=== PATIENT | female | born 1940 | race Caucasian/White ===

== ENCOUNTER → 2017-09-25 | Outpatient (CLI) | payer MEDICARE ==
[2017-03-01 11:20] VITALS: BMI 51.1
[~2017-09-25] MED LIST: ALEN5TAB PO; ALPR-459 PO; ASPI-1471 PO; ASPI81TA15 PO; CHOL500045 PO; ESCI5TAB3 PO; ESTR1.2525 PO; ESTR1POW41 MC; FLUO-202 PO; IRON1TAB10 PO; LEV88 PO; LEVO88TA43 PO; LISI2.5T60 PO; LISI30TA49 PO; MAX75 PO; OMEP-137 PO; ZOLP6.2530 PO
[2017-09-25 14:55] LABS: PLATELET COUNT, AUTOMATED 262 K/uL (150-450)
== END ==
LOC: LAB 14:13
PROVIDERS: ATTEND Nurse Practitioner Family
DX: E83.52 Hypercalcemia (principal); Z86.39 Personal history of other endocrine, nutritional and metabolic disease; E78.00 Pure hypercholesterolemia, unspecified; I10 Essential (primary) hypertension; E06.3 Autoimmune thyroiditis; D50.9 Iron deficiency anemia, unspecified; R53.81 Other malaise; E11.9 Type 2 diabetes mellitus without complications; E03.9 Hypothyroidism, unspecified
CPT/HCPCS: 36415; 82040; 82247; 82310; 82374; 82435; 82465; 82565; 82947; 83036; 83718; 84075; 84132; 84155; 84295; 84443; 84450; 84460; 84478; 84520; 85025

== ENCOUNTER → 2017-10-15 | Outpatient (CLI) | payer MEDICARE ==
[2017-03-01 11:20] VITALS: BMI 51.1
[~2017-10-15] MED LIST changes: +IOPAMIDOL 76% 75 ML INFUS BTL 75 ML ONE; +NS 0.9% 50 ML VIAL 50 ML ONE
--- NOTE | 2017-10-15 11:38 | RADIOLOGY IMAGING REPORT ---
FACILITY: [facility] - [place] PATIENT NAME: Donna Chilel : 1940 MR: [id number] V: [id number] EXAM DATE: ORDERING PHYSICIAN: YENY [place] TECHNOLOGIST: Location: [facility] [place] Patient: Donna Chilel : 1940 Visit/Account:[id number] Date of Sevice: 10/15/2017 CHEST W W/O CONTRAST History: Pulmonary nodules, lesions, multiple ADDITIONAL CLINICAL HISTORY: None TECHNIQUE: Contiguous axial images were performed through the chest to the level of the adrenal gla nds with and without IV contrast. Coronal and sagittal reformatting was also performed. Dose Loweri ng Technique One of the following dose optimization techniques was utilized in the performance of this exam: Autom ated exposure control; adjustment of the mA and/or kV according to the patient's size; or use of an i terative reconstruction technique. Specific details can be referenced in the facility's radiology C T exam operational policy. Contrast: 75 mL Isovue-370 COMPARISON STUDIES: April 16, 2017. Lungs / Pleura: 3 mm intrafissural or nodule along the superior aspect of the major fissure on the right appears unchanged best seen on image 30 of series 3 The additional 3 mm intrafissural nodule within the minor fissure on the right is unchanged best seen on image 44 A 4 x 1 mm subpleural nodule lateral aspect right middle lobe also unchanged best seen on image 52 4 mm subpleural nodule posterior lateral left lower lobe also unchanged best seen on image 61 3 mm a pleural nodule lateral aspect of the left lower lobe also unchanged best seen on image 55 There is no evidence of pulmonary infiltrates or pleural effusions. Mediastinum/nodes: negative. Heart and vessels: negative. Musculoskeletal / Body wall: Mild spondylotic changes of the thoracic spine Upper abdomen: Postsurgical changes from a cholecystectomy IMPRESSION: There are multiple small bilateral pulmonary nodules measuring up to 4 mm. These all remain stable w hen compared to the prior study. The Fleischner Society recommendations are as follows For multiple nodules measuring less than 6 mm, in a low risk patient (minimal or absent smoking history, no histor y of malignancy), no routine followup is recommended. In a high risk patient (smoking or malignancy h istory), optional 12 month followup can be obtained. Report Dictated By: Brittni Alan MD at 10/15/2017 11:26 AM Report E-Signed By: Brittni Alan MD at 10/15/2017 11:34 AM WSN:[id number]
== END ==
LOC: CT 06:55
PROVIDERS: ATTEND Surgery
DX: R91.8 Other nonspecific abnormal finding of lung field (principal)
CPT/HCPCS: 71270; J7050; Q9967

== ENCOUNTER → 2018-01-04 | Outpatient (CLI) | payer MEDICARE ==
[2017-03-01 11:20] VITALS: BMI 51.1
[~2018-01-04] MED LIST changes: -IOPAMIDOL 76% 75 ML INFUS BTL 75 ML ONE; -NS 0.9% 50 ML VIAL 50 ML ONE
[2018-01-04 12:26] LABS: PLATELET COUNT, AUTOMATED 267 K/uL (150-450)
== END ==
LOC: LAB 11:37
PROVIDERS: ATTEND Nurse Practitioner Family
DX: R07.89 Other chest pain (principal); E83.52 Hypercalcemia; E78.00 Pure hypercholesterolemia, unspecified; I10 Essential (primary) hypertension; R06.3 Periodic breathing; D50.9 Iron deficiency anemia, unspecified; R53.81 Other malaise; D72.818 Other decreased white blood cell count; D51.0 Vitamin B12 deficiency anemia due to intrinsic factor deficiency; E11.9 Type 2 diabetes mellitus without complications
CPT/HCPCS: 36415; 82040; 82247; 82310; 82374; 82435; 82465; 82565; 82947; 83036; 83718; 83735; 84075; 84132; 84155; 84295; 84443; 84450; 84460; 84478; 84520; 85025

== ENCOUNTER → 2018-01-25 | Outpatient (CLI) | payer MEDICARE ==
[2017-03-01 11:20] VITALS: BMI 51.1
[2018-01-25 12:16] LABS: PLATELET COUNT, AUTOMATED 292 K/uL (150-450)
== END ==
LOC: LAB 11:36
PROVIDERS: ATTEND Nurse Practitioner Family
DX: D72.818 Other decreased white blood cell count (principal); I10 Essential (primary) hypertension
CPT/HCPCS: 36415; 82040; 82247; 82310; 82374; 82435; 82565; 82947; 84075; 84132; 84155; 84295; 84450; 84460; 84520; 85025

== ENCOUNTER → 2018-04-29 | Outpatient (CLI) | payer MEDICARE ==
[2017-03-01 11:20] VITALS: BMI 51.1
== END ==
LOC: LAB 12:52
PROVIDERS: ATTEND Nurse Practitioner Family
DX: E11.22 Type 2 diabetes mellitus with diabetic chronic kidney disease (principal); Z86.39 Personal history of other endocrine, nutritional and metabolic disease; E83.52 Hypercalcemia; E78.00 Pure hypercholesterolemia, unspecified; I12.9 Hypertensive chronic kidney disease with stage 1 through stage 4 chronic kidney disease, or unspecified chronic kidney disease; E06.3 Autoimmune thyroiditis; D50.9 Iron deficiency anemia, unspecified; R53.81 Other malaise; R53.83 Other fatigue
CPT/HCPCS: 36415; 82040; 82247; 82310; 82374; 82435; 82565; 82746; 82947; 83036; 83735; 84075; 84132; 84155; 84295; 84443; 84450; 84460; 84520; 85027

== ENCOUNTER → 2018-08-02 | Outpatient (CLI) | payer MEDICARE ==
[2017-03-01 11:20] VITALS: BMI 51.1
[2018-08-02 11:11] LABS: PLATELET COUNT, AUTOMATED 313 K/uL (150-450)
== END ==
LOC: LAB 10:25
PROVIDERS: ATTEND Nurse Practitioner Family
DX: E11.22 Type 2 diabetes mellitus with diabetic chronic kidney disease (principal); E83.52 Hypercalcemia; E78.00 Pure hypercholesterolemia, unspecified; Z86.39 Personal history of other endocrine, nutritional and metabolic disease; I10 Essential (primary) hypertension; E06.3 Autoimmune thyroiditis; G47.00 Insomnia, unspecified; D50.9 Iron deficiency anemia, unspecified; R53.81 Other malaise; M81.0 Age-related osteoporosis without current pathological fracture; M25.569 Pain in unspecified knee; D51.0 Vitamin B12 deficiency anemia due to intrinsic factor deficiency
CPT/HCPCS: 36415; 82040; 82247; 82306; 82310; 82374; 82435; 82465; 82565; 82607; 82746; 82947; 83036; 83718; 83735; 84075; 84132; 84155; 84295; 84443; 84450; 84460; 84478; 84520; 85025

== ENCOUNTER → 2018-09-03 | Outpatient (CLI) | payer MEDICARE ==
[2017-03-01 11:20] VITALS: BMI 51.1
--- NOTE | 2018-09-29 14:21 | RADIOLOGY IMAGING REPORT ---
FACILITY: [facility] - [place] PATIENT NAME: YVES DIGGS : [id number] MR: [id number] V: [id number] EXAM DATE: [id number] ORDERING PHYSICIAN: LILIANE MENDOZA TECHNOLOGIST: Lucy Hobson PROCEDURE:BILATERAL DIGITAL SCREENING MAMMOGRAM WITH CAD ASSISTED INTERPRETATION & 3D TOMOSYNTHESIS COMPARISON:Prior mammograms 07/08/13, 03/02/13, 08/17/12, 08/09/09, 08/02/19, 08/18/08, 11/23/07, 10/27/06. INDICATIONS:screening FINDINGS: There are scattered areas of fibroglandular density seen throughout the breasts. The parenchymal pattern has remained stable allowing for difference in mammographic technique & patient positioning. There is no evidence of malignant appearing mass, malignant appearing calcifications or other secondary sign of malignancy in either breast. DIAGNOSTIC CATEGORY 1--NEGATIVE. RECOMMENDATIONS: ROUTINE MAMMOGRAM AND CLINICAL EVALUATION. IMPRESSION: BIRADS 1: Negative. No significant abnormality is seen. Dictated by: Brittni Alan M.D. on 09/07/2018 at 9:36 Transcribed by: SUSAN on 09/07/2018 at 10:06 Approved by: Brittni Alan M.D. on 09/07/2018 at 16:22 [facility]
== END ==
LOC: MAMO 02:41
PROVIDERS: ATTEND Nurse Practitioner Family
DX: Z12.31 Encounter for screening mammogram for malignant neoplasm of breast (principal)
CPT/HCPCS: 77063; 77067

== ENCOUNTER → 2018-11-12 | Outpatient (CLI) | payer MEDICARE ==
[2017-03-01 11:20] VITALS: BMI 51.1
== END ==
LOC: LAB 11:03
PROVIDERS: ATTEND Nurse Practitioner Family
DX: E11.22 Type 2 diabetes mellitus with diabetic chronic kidney disease (principal); E83.52 Hypercalcemia; I10 Essential (primary) hypertension; E06.3 Autoimmune thyroiditis; D50.9 Iron deficiency anemia, unspecified; Z86.39 Personal history of other endocrine, nutritional and metabolic disease
CPT/HCPCS: 36415; 82040; 82247; 82310; 82374; 82435; 82565; 82746; 82947; 83036; 84075; 84132; 84155; 84295; 84443; 84450; 84460; 84520; 85027

== ENCOUNTER → 2018-11-23 | Outpatient (CLI) | payer MEDICARE ==
[2017-03-01 11:20] VITALS: BMI 51.1
[~2018-11-23] MED LIST changes: +DENOSUMAB 60 MG/1 ML SYR SUBQ ONE
[2018-11-23 13:55] VITALS: BP 143/80
== END ==
LOC: SPU 07:39
PROVIDERS: ATTEND Nurse Practitioner Family
DX: M81.0 Age-related osteoporosis without current pathological fracture (principal)
CPT/HCPCS: 96372; J0897

== ENCOUNTER → 2019-02-18 | Outpatient (CLI) | payer MEDICARE ==
[2017-03-01 11:20] VITALS: BMI 51.1
[~2019-02-18] MED LIST changes: -DENOSUMAB 60 MG/1 ML SYR SUBQ ONE
[2019-02-18 11:06] LABS: PLATELET COUNT, AUTOMATED 232 K/uL (150-450)
[2019-02-18 11:27] LABS: LDL CHOLESTEROL 71 mg/dl
== END ==
LOC: LAB 09:49
PROVIDERS: ATTEND Nurse Practitioner Family
DX: R53.81 Other malaise (principal); E87.8 Other disorders of electrolyte and fluid balance, not elsewhere classified; R73.01 Impaired fasting glucose; E78.00 Pure hypercholesterolemia, unspecified; E83.42 Hypomagnesemia
CPT/HCPCS: 36415; 82040; 82247; 82310; 82374; 82435; 82465; 82565; 82947; 83036; 83718; 83735; 84075; 84132; 84155; 84295; 84443; 84450; 84460; 84478; 84520; 85025